=== PATIENT | male | born 1980 | race Caucasian/White ===

== ENCOUNTER 2017-01-06 03:09 | Emergency (ER) | payer SELFPAY ==
[~2017-01-06] VITALS: Ht 185.4 cm; Wt 202.0 kg
[2017-01-06] MEDS ORDERED: LIDOCAINE 1%, 20ML ONE ×2 (03:16→04:10)
[2017-01-06] MEDS ORDERED: BUPIVACAINE/PF 0.5% INFIL ONE (03:30)
[2017-01-06] MEDS ORDERED: BUPIVACAINE/PF 0.5% ONE (03:32)
[2017-01-06] MEDS ORDERED: BUPIVACAINE 0.25% ONE (03:32)
[2017-01-06] MEDS ORDERED: BACITRACIN ZINC OINT 500U/GM, 0.9 GM ONE (03:56)
[2017-01-06] MEDS ORDERED: CEFAZOLIN 1,000 MG ONE (04:10)
[2017-01-06] MEDS ORDERED: HYDROcodone/APAP 5/325 TABLET ONE (04:22)
[2017-01-06] MEDS ORDERED: HYDROcodone/APAP 5/325 TABLET PO ONE (04:30)
[2017-01-06] MEDS ORDERED: AMOXICILLIN/CLAV 875-125MG TABLET PO ONE (04:30)
[2017-01-06 04:44] VITALS: BP 137/81
== END 2017-01-06 04:46 | disposition home or self-care (01) ==
LOC: EDBD 03:09 → ED 04:38
DX: S51.812A Laceration without foreign body of left forearm, initial encounter (principal); W26.0XXA Contact with knife, initial encounter; Y93.89 Activity, other specified; Y99.8 Other external cause status; Y92.410 Unspecified street and highway as the place of occurrence of the external cause
CPT/HCPCS: 12042; 99284

== ENCOUNTER 2017-02-06 07:52 | Emergency (ER) | payer MEDICAID, OTHER ==
[~2017-02-06] VITALS: Ht 185.4 cm; Wt 90.5 kg
[2017-02-06 07:55] VITALS: BP 135/84
[2017-02-06] MEDS ORDERED: SODIUM CHLORIDE 0.9% 1,000ML IVBOLUS ONE (08:30)
[2017-02-06] MEDS ORDERED: KETOROLAC 30 MG/1 ML IVPush ONE (08:30)
[2017-02-06] MEDS ORDERED: SODIUM CHLORIDE FLUSH 10ML SYR IVF ONE (08:30)
[2017-02-06] MEDS ORDERED: BICILLIN-LA 1,200,000 UNITS/2 ML IM ONE (08:30)
[2017-02-06] MEDS ORDERED: DEXAMETHASONE 4 MG/ML, 1ML IV ONE (08:30)
[2017-02-06] MEDS ORDERED: DEXAMETHASONE 4 MG/ML, 5ML ONE (08:38)
[2017-02-06] MEDS ORDERED: KETOROLAC 30 MG/1 ML ONE (08:38)
== END 2017-02-06 10:06 | disposition home or self-care (01) ==
LOC: ED 08:56
DX: J02.0 Streptococcal pharyngitis (principal)
CPT/HCPCS: 96361; 96372; 96374; 96375; 99285; J0561; J1100; J1885; J7030

== ENCOUNTER 2017-07-02 15:37 | Emergency (ER) | payer MEDICAID ==
[~2017-07-02] VITALS: Ht 185.4 cm; Wt 87.3 kg
[2017-07-02 15:39] VITALS: BP 137/84
[2017-07-02] MEDS ORDERED: DIPHENHYDRAMINE 25 MG CAPSULE ONE (15:52)
[2017-07-02] MEDS ORDERED: DIPHENHYDRAMINE 25 MG CAPSULE PO ONE (16:00)
== END 2017-07-02 16:32 | disposition home or self-care (01) ==
LOC: ED 16:31
DX: T55.1X1A Toxic effect of detergents, accidental (unintentional), initial encounter (principal); L23.5 Allergic contact dermatitis due to other chemical products; F31.9 Bipolar disorder, unspecified; F17.200 Nicotine dependence, unspecified, uncomplicated; Y92.89 Other specified places as the place of occurrence of the external cause
CPT/HCPCS: 99282; Q0163

== ENCOUNTER 2017-12-25 10:05 | Emergency (ER) | payer MEDICAID ==
[~2017-12-25] VITALS: Ht 185.4 cm; Wt 84.0 kg
[2017-12-25] MEDS ORDERED: HYDROcodone/APAP 5/325 TABLET ONE (10:22)
[2017-12-25] MEDS ORDERED: HYDROcodone/APAP 5/325 TABLET PO ONE (11:00)
[2017-12-25 11:18] VITALS: BP 132/64
== END 2017-12-25 11:20 | disposition home or self-care (01) ==
LOC: ED 11:14
DX: S50.01XA Contusion of right elbow, initial encounter (principal); F31.9 Bipolar disorder, unspecified; F17.210 Nicotine dependence, cigarettes, uncomplicated; Z21 Asymptomatic human immunodeficiency virus [HIV] infection status; Z59.0 Homelessness; X58.XXXA Exposure to other specified factors, initial encounter; Y93.84 Activity, sleeping; Y92.830 Public park as the place of occurrence of the external cause; Y99.8 Other external cause status
CPT/HCPCS: 99284

== ENCOUNTER 2018-03-05 06:44 | Emergency (ER) | payer MEDICAID ==
[~2018-03-05 06:44] MED LIST: EMTR1TAB9 PO
--- NOTE | 2018-03-05 06:48 | NUR ---
PT. CALLED BACK FOR TRIAGE; PT. STATES "I THINK I AM ACTUALLY JUST GOING TO LEAVE; I DON'T THINK I NEED TO BE SEEN." PT. REPORTS "I USED METH 2 DAYS AGO AND TOOK A ATARAX TO HELP ME SLEEP AND I CAME HERE BECAUSE I STARTED HEARING VOICES, BUT I'M FINE NOW." PT. DENIES SI/HI. DENIES ANY PAST SI/SA. PT. IS A&O X 4 AND AMBULATORY WITH STEADY GAIT OUT OF ED.
== END 2018-03-05 06:52 | disposition left against medical advice (07) ==
LOC: ED 06:46
DX: Z53.21 Procedure and treatment not carried out due to patient leaving prior to being seen by health care provider (principal)

== ENCOUNTER 2018-03-05 06:57 | Emergency (ER) | payer MEDICAID ==
[~2018-03-05] VITALS: Ht 185.4 cm; Wt 81.6 kg
[2018-03-05 07:00] VITALS: BP 120/83
--- NOTE | 2018-03-05 07:31 | NUR ---
ASSUMED CARE OF PATIENT IN ROOM 2. PATIENT STATES THAT HE IS HEARING VOICES BUT DECLINES TO STATE WHAT THE VOICES ARE TELLING HIM. PATIENT DOES, HOWEVER, DENY SUICIDAL IDEATION. PATIENT HAS NO MEDICAL COMPLAINTS AT THIS TIME. PATIENT IS CALM AND COOPERATIVE AND IN NO DISTRESS. PATIENT IS RESTING WITH NO COMPLAINTS. WARM BLANKET PROVIDED. CALL BUTTON PROVIDED AND USE EXPLAINED TO PATIENT.
--- NOTE | 2018-03-05 07:39 | NUR ---
BLOOD DRAWN AND URINE COLLECTED AND SENT TO LAB.
[2018-03-05 07:43] LABS: MICROSCOPIC NOT IND
[2018-03-05 07:45] LABS: CULTURE INDICATED? NO
[2018-03-05 07:47] LABS: BASOPHILS # (AUTO) 0.03 x10^3/uL (0-0.1); BASOPHILS % (AUTO) 1 % (0-1); EOSINOPHILS % (AUTO) 2 % (1-7); LYMPHOCYTES # (AUTO) 2.08 x10^3/uL (1-3.4); LYMPHOCYTES % (AUTO) 48 % (22-44); MD NO; MEAN CORPUSCULAR HEMOGLOBIN 28.5 pg (27.5-34.5); MEAN CORPUSCULAR HGB CONC 33.2 g/dL (33.2-36.2); MEAN CORPUSCULAR VOLUME 85.9 fL (81-97); MEAN PLATELET VOLUME 7.9 fL (7.4-10.4); MONOCYTES % (AUTO) 9 % (2-9); NEUTROPHILS # (AUTO) 1.73 x10^3/uL (1.8-6.8); NEUTROPHILS % (AUTO) 40 % (42-75); PLATELET COUNT 236 x10^3/uL (130-400); RED BLOOD COUNT 5.49 x10^6/uL (4.38-5.82); RED CELL DISTRIBUTION WIDTH 13.8 % (9.4-14.8)
[2018-03-05 07:56] LABS: ALANINE AMINOTRANSFERASE 115 U/L (12-78); ALBUMIN 3.8 g/dL (3.4-5.0); ANION GAP 6 mmol/L (5-15); CALCIUM 8.6 mg/dL (8.5-10.1); CHLORIDE 112 mmol/L (98-107); CREATININE 0.86 mg/dL (0.7-1.3)
[2018-03-05 07:58] LABS: ALKALINE PHOSPHATASE 67 U/L (45-117); BILIRUBIN,TOTAL 0.4 mg/dL (0.2-1.0); TOTAL PROTEIN 7.8 g/dL (6.4-8.2)
[2018-03-05 08:15] LABS: AMPHETAMINE SCREEN, URINE Positive (Negative); BARBITURATE SCREEN, URINE Negative (Negative); BENZODIAZEPINE SCREEN, URINE Negative (Negative); CANNABINOID SCREEN, URINE Negative (Negative); COCAINE SCREEN, URINE Negative (Negative); METHADONE SCREEN, URINE Negative (Negative); OPIATE SCREEN, URINE Negative (Negative)
--- NOTE | 2018-03-05 08:50 | NUR ---
WELL CARE CONSULT INITIATED.
--- NOTE | 2018-03-05 09:39 | NUR ---
CHART FAXED TO [facility].
== END 2018-03-05 10:23 | disposition left against medical advice (07) ==
LOC: ED 08:30
DX: F20.9 Schizophrenia, unspecified (principal); F15.10 Other stimulant abuse, uncomplicated; F31.9 Bipolar disorder, unspecified; Z21 Asymptomatic human immunodeficiency virus [HIV] infection status
CPT/HCPCS: 36415; 80053; 80307; 81003; 85025; 99284

== ENCOUNTER 2018-03-08 18:59 | Emergency (ER) | payer MEDICAID ==
[~2018-03-08] VITALS: Ht 185.4 cm; Wt 89.5 kg
[2018-03-08 19:03] VITALS: BP 160/99
--- NOTE | 2018-03-08 19:38 | NUR ---
FINGERSTICK GLUCOSE 80. PT REPORTS AUDITORY HALLUCINATIONS. PT ALSO PICKING AT SCALP, STATES HE HAS BUMPS ALL OVER HIS HEAD. NO BUMPS OR BUGS SEEN. PT W/HX OF AUD HALLUCINATIONS AND METH USE.
== END 2018-03-08 19:44 | disposition home or self-care (01) ==
LOC: ED 19:38
DX: F23 Brief psychotic disorder (principal); F15.10 Other stimulant abuse, uncomplicated; Z21 Asymptomatic human immunodeficiency virus [HIV] infection status
CPT/HCPCS: 82962; 99284